=== PATIENT | female | born 1995 | race Caucasian/White ===

== ENCOUNTER 2025-05-16 04:32 | Emergency (ER) | payer MEDICAID ==
--- NOTE | 2025-05-16 05:00 | ED.PDOC ---
History of Present Illness HPI Comments 29 y/o F is BIBA from home for 2x day history of fever, sore throat, nausea, vomiting, and lethargy. Per EMS report, called on patient's behalf following endorsement of progressively worsening symptoms since initial, unprovoked onset. Patient attempted to take [id number] medications but reported on vomiting them, immediately, following intake. Vitals were noted to have been stable and within normal limits, with exception of being tachycardic in the 140's range. IV fluids were given. No endorsement of any recent sick contact, travel, substance use, or spoiled food indigestion. Denial of any bloody or bilious vomitus, diarrhea, urinary symptoms, cough, congestion, chills, or further associated symptoms. Chief Complaint: Fever Time Seen by MD: 04:30 Reviewed Notes: Nurses Notes, Liner Worker Notes, Medications, Allergies Allergies: Coded Allergies: Nitrofurantoin (Verified Allergy, Unknown, 05/16/25) Sertraline (Verified Allergy, Unknown, 05/16/25) Information Source: Patient, Emergency Med Personnel Mode of Arrival: EMS Severity: Moderate Timing: Hours Duration: Since onset Prehospital treatment: 12 Lead EKG, Registration Clerk, IVF Past Medical History Surgical History: Denies all surgeries DISPLAY TRIMMER History: Denies all DISPLAY TRIMMER Hx Family History Family History: Unknown Social History Smoker: Non-Smoker Alcohol: Denies ETOH Use Drugs: Denies Drug Use Lives In: Home All Other Systems: Reviewed and Negative (Comprehensive systems review obtained and negative except for what is stated in the HPI.) Physical Exam General Appearance: No Apparent Distress, Normal, Other (febrile) HEENT: Normal ENT Inspection, Pharynx Normal, TMs Normal Neck: Full Range of Motion, Non-Tender, Normal, Normal Inspection Respiratory: Chest Non-Tender, Lungs Clear, No Accessory Muscle Use, No Respiratory Distress, Normal Breath Sounds Cardiovascular: No Edema, No JVD, No Murmur, No Gallop, Normal Peripheral Pulses, Tachycardia, Other (regular rhythm) Breast Exam: Deferred Gastrointestinal: No Organomegaly, Non Tender, No Pulsatile Mass, Normal Bowel Sounds, Soft Genitalia: Deferred Pelvic: Deferred Rectal: Deferred Extremities: No calf tenderness, Normal capillary refill, Normal inspection, Normal range of motion, Non-tender, No pedal edema Musculoskeletal : Apperance: Normal Neurologic: Alert, cutter operator brick II-XII nml as Tested, No Motor Deficits, Normal Affect, Normal Mood, No Sensory Deficits Cerebellar Function: Normal Reflexes: Normal Skin: Dry, Normal Color, Warm Lymphatic: No Adenopathy Was a procedure done? Was a procedure done?: No Differential Dx Considerations may include: sepsis, viral syndrome, dehydrations, electrolyte imbalance, UTI, gastritis, among others X-Ray, Labs, Meds, VS Vital Signs Date Time Temp Pulse Resp B/P (MAP) Pulse Ox O2 Delivery O2 Flow Rate FiO2 05/16/25 09:58 98.5 103 16 106/70 (82) 95 98.5 05/16/25 08:00 98.1 104 20 109/65 (80) 98 98.1 05/16/25 08:00 90 20 97 Nasal Cannula* 2 28 05/16/25 06:13 98.7 05/16/25 06:00 98.7 115 16 126/80 (95) 90 98.7 05/16/25 05:13 103.5 05/16/25 05:10 94 Room Air* 0 21 05/16/25 05:10 103.5 115 20 131/87 (102) 94 103.5 05/16/25 04:38 103.2 125 20 132/75 (94) 99 103.2 Lab Test 05/16/25 04:50 Range/Units White Blood Count 18.4 H 4.4-10.8 10^3/uL Red Blood Count 4.15 4.0-5.20 10^6/uL Hemoglobin 12.6 12.2-16.2 g/dL Hematocrit 36.3 36.0-46.0 % Mean Corpuscular Volume 87.4 80.0-100.0 fL Mean Corpuscular Hemoglobin 30.4 28.0-32.0 pg Mean Corpuscular Hemoglobin Concent 34.8 32.0-36.0 g/dL Red Cell Distribution Width 13.2 11.8-14.3 % Platelet Count 322 140-450 10^3/uL Mean Platelet Volume 6.5 L 6.9-10.8 fL Neutrophils (%) (Auto) 92.9 H 37.0-80.0 % Lymphocytes (%) (Auto) 2.6 L 10.0-50.0 % Monocytes (%) (Auto) 4.3 0.0-12.0 % Eosinophils (%) (Auto) 0.1 0.0-7.0 % Basophils (%) (Auto) 0.1 0.0-2.0 % Neutrophils # (Auto) 17.1 H 1.6-8.6 10 ^3/uL Lymphocytes # (Auto) 0.5 0.4-5.4 10 ^3/uL Monocytes # (Auto) 0.8 0-1.3 10 ^3/uL Eosinophils # (Auto) 0 0-0.8 10 ^3/uL Basophils # (Auto) 0 0-0.2 10 ^3/uL Nucleated Red Blood Cells 0.0 % Prothrombin Time 12.9 H 9.3-11.8 sec Prothrombin Time INR 1.24 H 0.9-1.15 Activated Partial Thromboplast Time 32.2 24.5-34.5 SEC Sodium Level 136 136-145 mmol/L Potassium Level 3.6 3.5-5.1 mmol/L Chloride Level 102 98-107 mmol/L Carbon Dioxide Level 23 20-31 mmol/L Anion Gap 11 5-15 Blood Urea Nitrogen 7 L 9-23 mg/dL Creatinine 0.63 0.550-1.02 mg/dL Glomerular Filtration Rate Calc 125 >90 mL/min BUN/Creatinine Ratio 11.1 10.0-20.0 Serum Glucose 99 74-106 mg/dL Lactic Acid Level 0.9 0.4-2.0 mmol/L Calcium Level 8.5 L 8.7-10.4 mg/dL Total Bilirubin 0.7 0.2-1.0 mg/dL Aspartate Amino Transferase (AST) 19 13-40 U/L Alanine Aminotransferase (ALT) 15 7-40 U/L Alkaline Phosphatase 71 46-116 U/L Total Protein 6.7 5.7-8.2 g/dL Albumin 4.4 3.2-4.8 g/dL Microbiology Date/Time Source Procedure Growth Status 05/16/25 04:50 Blood Blood Culture - Final NO GROWTH AFTER 5 DAYS OF INCUBATION. Complete 05/16/25 04:40 Blood Blood Culture - Final NO GROWTH AFTER 5 DAYS OF INCUBATION. Complete Time of 1ST Reevaluation: 05:00 Reevaluation 1ST: Unchanged Patient Education/Counseling: Diagnosis, Treatment Family Education/Counseling: No Family Present Additional Information Previous visits reviewed: October 04, 2016 encounter for chest pain/shortness of breath The following tests were ordered, and results were reviewed by me: lactic acid w/reflex, blood culture, accucheck, CXR, UA, PTPTT, CMP, CBC Additional Information was gathered from interviewing the following independent historians: EMS I reviewed and agreed with the following test results read by other providers: CXR I discussed treatment and results with medical personnel and: patient SEPSIS Sepsis Screen Physician Orders Chest Portable (05/16/25 04:33) Accucheck (05/16/25 04:33) Imaging Transfer Request (05/16/25 06:52) Vital Signs Date Time Temp Pulse Resp B/P (MAP) Pulse Ox O2 Delivery O2 Flow Rate FiO2 05/16/25 09:58 98.5 103 16 106/70 (82) 95 98.5 05/16/25 08:00 98.1 104 20 109/65 (80) 98 98.1 05/16/25 08:00 90 20 97 Nasal Cannula* 2 28 05/16/25 06:13 98.7 05/16/25 06:00 98.7 115 16 126/80 (95) 90 98.7 05/16/25 05:13 103.5 05/16/25 05:10 94 Room Air* 0 21 05/16/25 05:10 103.5 115 20 131/87 (102) 94 103.5 05/16/25 04:38 103.2 125 20 132/75 (94) 99 103.2 Laboratory Tests Test 05/16/25 04:50 Lactic Acid Level 0.9 mmol/L (0.4-2.0) White Blood Count 18.4 10^3/uL (4.4-10.8) H Departure 1 Departure Time of Disposition: 18:50 (Patient presented with right lower lobe pneumonia. Patient was accepted to [place] to transfer. We will transfer patient) Impression: Primary Impression: Right lower lobe pneumonia Qualified Codes: J18.9 - Pneumonia, unspecified organism Additional Impression: Shortness of breath Disposition: 02 SHORT TERM HOSPITAL Admit to: Med Surg Condition: Serious Critical Care Note Critical Care Time?: No Stability Stability form required: No Heart Score Heart Score: Heart Score Response (Comments) Value History N/A 0 EKG N/A 0 Age N/A 0 Risk Factors N/A 0 Troponin N/A 0 Total 0 I personally scribed for STEPHANIE GAITAN MD ([email or web address]) on 05/16/25 at 05:00. Electronically submitted by Mike Sethi [email or web address]). STEPHANIE GAITAN MD May 16, 2025 05:00
--- NOTE | 2025-05-16 05:02 | DVH ---
CHEST RADIOGRAPH Indication: fever Technique: Single frontal view of the chest was obtained COMPARISON: None FINDINGS: Lines and Tubes: None Lungs: Consolidative appearing right middle lung zone infiltrate consistent with pneumonia. Pleura: No effusion. No pneumothorax. Cardiomediastinal contours: Unremarkable Bones: Unremarkable IMPRESSION: 1. Right middle lung zone pneumonia presumably within the anterior segment of the right parietal lobe or lateral segment of the right middle lobe.
[2025-05-16 05:10] VITALS: O2SAT 94
[2025-05-16 05:13] LABS: Hematocrit 36.3 % (36.0-46.0); Hemoglobin 12.6 g/dL (12.2-16.2); Mean Corpuscular Hemoglobin 30.4 pg (28.0-32.0); Mean Corpuscular Volume 87.4 fL (80.0-100.0); Nucleated Red Blood Cells % 0.0 %
[2025-05-16] MEDS: ONDANSETRON HCL 4 MG/2 ML VIAL IV ONE (05:13)
[2025-05-16] MEDS: ACETAMINOPHEN 325 MG TAB PO ONE (05:13)
[2025-05-16] MEDS: VANCOMYCIN 1GM/200ML PM 200 ML IV ONE (05:13)
[2025-05-16] MEDS: SODIUM CHLORIDE 0.9% 2,000 ML IV ONE (05:14)
[2025-05-16 05:30] LABS: Alanine Aminotransferase 15 U/L (7-40); Albumin 4.4 g/dL (3.2-4.8); Alkaline Phosphatase 71 U/L (46-116); Anion Gap 11 (5-15); BUN/Creatinine Ratio 11.1 (10.0-20.0); Carbon Dioxide 23 mmol/L (20-31); Chloride 102 mmol/L (98-107); Glucose 99 mg/dL (74-106); INR 1.24 (0.9-1.15); Partial Thromboplastin Time 32.2 SEC (24.5-34.5); Potassium 3.6 mmol/L (3.5-5.1); Prothrombin Time 12.9 sec (9.3-11.8); Total Protein 6.7 g/dL (5.7-8.2)
[2025-05-16 05:31] LABS: Bilirubin, Total 0.7 mg/dL (0.2-1.0); Blood Urea Nitrogen 7 mg/dL (9-23); Calcium 8.5 mg/dL (8.7-10.4); Sodium 136 mmol/L (136-145)
[2025-05-16] MEDS: AZITHROMYCIN 250 MG TAB PO ONE (06:08)
[2025-05-16] MEDS: KETOROLAC TROMETH 30 MG/ML 1ML VIAL IV ONE (06:26)
[2025-05-16] MEDS: CEFEPIME 1GM/ 50ML 50 ML IV SCH (06:45)
[2025-05-16 08:00] VITALS: PULSE 90; RESP 20; O2SAT 97
[2025-05-16 09:58] VITALS: BP 106/70; PULSE 103; RESP 16; TEMP 98.5; O2SAT 95
== END 2025-05-16 10:16 | disposition short-term general hospital (02) ==
LOC: ER 04:32 → EDBD 04:32 → ER 10:16
DX: J18.9 Pneumonia, unspecified organism (principal); R50.9 Fever, unspecified; J02.9 Acute pharyngitis, unspecified; R11.2 Nausea with vomiting, unspecified; R06.02 Shortness of breath; Z88.1 Allergy status to other antibiotic agents
CPT/HCPCS: 36415; 71045; 80053; 83605; 85025; 85610; 85730; 87040; 96365; 96366; 96367; 96375; 99285; J0692; J1885; J2405; J3370; J7030